=== PATIENT | male | born 1935 | race Caucasian/White ===

== ENCOUNTER 2016-05-27 04:30 | Inpatient (IN) | payer OTHER ==
[2016-05-20 13:04] LABS: URINE SOURCE CLEAN CATCH
[2016-05-20 13:10] LABS: MANUAL DIFF NEEDED? NO
[2016-05-20 13:27] LABS: INR 0.99; PROTIME 10.5 Seconds (9.2-11.7); PTT 25.1 Seconds (22.0-36.0)
[2016-05-20 13:29] LABS: BILIRUBIN URINE NEGATIVE (NEGATIVE); BLOOD URINE NEGATIVE (NEGATIVE); CLARITY CLEAR (CLEAR); COLOR YELLOW; GLUCOSE URINE NEGATIVE (NEGATIVE); LEUKOCYTES URINE NEGATIVE (NEGATIVE); NITRITE URINE NEGATIVE (NEGATIVE); PROTEIN URINE NEGATIVE (NEGATIVE); SP GRAVITY URINE 1.025; UROBILINOGEN URINE 0.2 EU/dL (0.2-1.0)
[2016-05-20 13:42] LABS: BASO% 0.1 % (0.0-0.8); EOS# 0.09 X1000 (0.0-0.7); EOS% 1.2 % (0.0-10.0); HEMATOCRIT 40.6 % (42.0-52.0); HEMOGLOBIN 13.4 g/dL (14.0-18.0); LYMPH# 1.56 X1000 (1.2-3.4); LYMPH% 20.4 % (20.5-51.1); MCH 31.5 PG (27-31); MCV 95.3 FL (81-99); MONO% 6.6 % (1.7-9.3); MPV 12.6 FL (7.4-10.4); NEUT% 71.7 % (42.2-75.2); PLT 171 X1000 (130-400); RBC 4.26 XMIL (4.7-6.1)
[2016-05-20 13:55] LABS: URINE EPITHELIAL CELLS <10 /HPF (<10); URINE RBC <10 /HPF (<10); URINE WBC <10 /HPF (<10)
[2016-05-20 13:58] LABS: AGAP 12; BUN 19 mg/dL (8-22); CALCIUM 8.7 mg/dL (8.8-10.2); CHLORIDE 98 mmol/L (98-107); COSMO 285; POTASSIUM 3.7 mmol/L (3.5-5.1); SODIUM 140 mmol/L (136-145); TCO2 30 mmol/L (25-35)
--- NOTE | 2016-05-20 15:46 | EKG Report ---
Test Performed on : 05/20/2016 12:29:28 PM Test Reason : PAT Blood Pressure : / mmHG Vent. Rate : 081 BPM Atrial Rate : 081 BPM P-R Int : 164 ms QRS Dur : 112 ms QT Int : 410 ms P-R-T Axes : 039 -37 004 degrees QTc Int : 476 ms Sinus rhythm. with frequent premature ventricular complexes. Possible Left atrial enlargement Left axis deviation Incomplete right bundle branch block Abnormal ECG When compared with ECG of 31-JUL-2015 12:02, No significant change was found Confirmed by Yohan Gonsales MD ([id number]) on 05/20/2016 9:52:11 PM
[2016-05-27] MEDS ORDERED: PEPCID ONE (08:13)
[2016-05-27] MEDS ORDERED: COLACE ONE (08:13)
[2016-05-27] MEDS ORDERED: LR 1,000 ML ONE ×2 (08:14→14:57)
[2016-05-27] MEDS ORDERED: REGLAN ONE (08:14)
[2016-05-27] MEDS ORDERED: LYRICA ONE (08:14)
[2016-05-27] MEDS ORDERED: KEFZOL 2 GM/D5W 50 ML ONE (08:14)
[2016-05-27] MEDS ORDERED: MARCAINE 0.25% PF/EPI 1:200,000 ONE (09:23)
[2016-05-27] MEDS ORDERED: DURAMORPH ONE (09:23)
[2016-05-27] MEDS ORDERED: SODIUM CHLORIDE 0.9% ONE (09:23)
[2016-05-27] MEDS ORDERED: NEOSPORIN G.U. IRRIGANT ONE (09:23)
[2016-05-27] MEDS ORDERED: TORADOL ONE (09:23)
[2016-05-27] MEDS ORDERED: EXPAREL 1.3% ONE (09:24)
[2016-05-27] MEDS ORDERED: NAROPIN 0.5% ONE (09:38)
[2016-05-27] MEDS ORDERED: VERSED ONE (09:44)
[2016-05-27] MEDS ORDERED: CYKLOKAPRON 1,000 MG/NS 100 ML ONE (10:07)
[2016-05-27] MEDS: BENICAR PO SCH ×2 (11:01→19:16)
[2016-05-27] MEDS ORDERED: MORPHINE ONE (12:18)
[2016-05-27] MEDS ORDERED: DIPRIVAN 1% ONE (12:19)
--- NOTE | 2016-05-27 12:26 | OPERATIVE NOTE ---
PROCEDURE DATE: 05/27/2016 PREOPERATIVE DIAGNOSIS: Right glenohumeral arthritis with chronic rotator cuff tear. 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 PROCEDURE PERFORMED: Right reverse shoulder arthroplasty with a DePuy Delta Xtend size 14 press- fit stem, a 42+9 humeral cup, a 42 eccentric glenosphere, and a standard metaglene. SURGEON: Rajiv Ny MD 1ST WEEKEND CAREGIVER: FÉLIX Rice 2ND WEEKEND CAREGIVER: PUMA Yan ANESTHESIA: General. IV FLUIDS: 1200 mL of lactated Ringer's. ESTIMATED BLOOD LOSS: 150 mL. COMPLICATIONS: None. INDICATIONS: The patient is an 81-year-old male with a chronic history of worsening pain and discomfort of his right shoulder. His x-rays revealed significant degenerative glenohumeral arthritis with superior migration of the humeral head, consistent with a chronic rotator cuff tear. Recommendation to proceed with right reverse total shoulder arthroplasty was offered. Risks and benefits of surgery were explained, including risks of anesthesia, , bleeding, infection, failure to relieve pain, postoperative stiffness, nerve injury, blood clots, and other imponderables. All questions were answered. The patient and family wished to proceed with surgery. DETAILS OF OPERATION: The patient was taken to the operating room and placed supine on the operating table. Once adequate anesthesia was obtained, the patient was placed in semi-Pascual beach-chair position. The right shoulder was subsequently prepped and draped in usual sterile fashion. A standard deltopectoral incision was made with a skin knife. Hemostasis was obtained using electrocautery. A standard deltopectoral incision was made. Hemostasis was obtained using electrocautery. The deltopectoral interval was then developed and the cephalic vein was retracted laterally with the deltoid. Retractors were then placed. At the inferior aspect of the subscapularis tendon, the patient has a large massive rotator cuff tear extending from anteriorly to posteriorly and in a portion of the subscapularis as well. The inferior aspect of the subscapularis tendon was elevated and retracted. The head was then dislocated anteriorly. A starting reamer was passed into the intramedullary canal and this was increased. Sequential reaming was then conducted up to size 14. An intramedullary guide was then placed and the humeral head was then resected in standard fashion. A protective disk was then placed. Attention was then turned to the glenoid, where circumferential dissection was performed with a deep knife. The patient did have an inferior osteophyte off the distal inferior aspect of the glenoid, which was removed with a rongeur and a small osteotome. A guide was placed in position. A guide pin was placed. Reaming was then conducted. An inferior osteophyte was noted on the glenoid. A rongeur along with a small osteotome was used to remove this. There appeared to be adequate resection of the osteophyte. A central hole was then dilated. The wound was copiously irrigated with antibiotic pulsatile lavage. The standard metaglene was then placed. Two locking screws were placed and 2 nonlocking screws. They had good purchase. The wound was copiously irrigated once again. A 42 eccentric glenosphere was then placed with the eccentricity placed inferiorly. Attention was then turned to the proximal humerus, where a guide was placed in position. The proximal humerus was then reamed. The intramedullary canal was then copiously irrigated with antibiotic pulsatile lavage. This was followed by a size 14 press-fit stem and had good purchase. Trial cups were then placed and a +9 had excellent stability and range of motion. The trial cup was removed. Copious irrigation was then performed once again with antibiotic pulsatile lavage. A 42+9 humeral cup was impacted on the stem. The shoulder was reduced, carried through range of motion, and had excellent range of motion and stability. Exparel was placed in the deep soft tissue as well as subcutaneous tissue. Copious irrigation was then performed once again with antibiotic pulsatile lavage. Suture of 2-0 Vicryl was used to repair the subcutaneous tissue, followed by running 2-0 Prolene. Benzoin and Steri-Strips were applied. Adaptic, sterile 4 x 4's, ABD pad, and tape were applied to the right shoulder, followed by a shoulder immobilizer. All counts were correct. The patient tolerated the procedure well and was transferred to the recovery room in stable condition. [facility]
[2016-05-27] MEDS ORDERED: MORPHINE IV PRN (12:59)
[2016-05-27] MEDS ORDERED: MILK OF MAGNESIA PO PRN (13:00)
[2016-05-27] MEDS ORDERED: ZOFRAN PO PRN (13:00)
[2016-05-27] MEDS: NS 1,000 ML IV SCH ×2 (13:08→23:27)
[2016-05-27] MEDS ORDERED: NS 1,000 ML ONE (13:10)
--- NOTE | 2016-05-27 13:24 | HISTORY AND PHYSICAL ---
CHIEF COMPLAINT: Right shoulder pain. HISTORY OF PRESENT ILLNESS: Mr. De La Rosa is an 81-year-old white male with a history of right shoulder pain he states for several years. Images show evidence of advanced osteoarthritis of the shoulder. He is being admitted today for a right total shoulder arthroplasty. PAST MEDICAL HISTORY: Hypertension, hyperlipidemia, colon cancer and osteoarthritis. PAST SURGICAL HISTORY: Colon resection. Right elbow surgery. Right inguinal hernia surgery. FAMILY HISTORY: Noncontributory. SOCIAL HISTORY: Single. Denies using tobacco, reports using alcohol occasionally. CURRENT HOME MEDICATIONS ARE: Tramadol 50 mg p.o. q.6 hours p.r.n., Pravachol 40 mg p.o. at bedtime, aspirin 81 mg p.o. at bedtime and Benicar 5 mg p.o. daily. ALLERGIES: Sulfa. PRIMARY CARE PROVIDER: Dr. Jeter. REVIEW OF SYSTEMS: HEENT: Patient reports having glasses. Denies any dentures or hearing aids or any ear, nose, or throat problems. Cardiac: Patient denies any cardiac problems in the past. Denies syncope. Denies any chest pain, currently. Pulmonary: Patient denies any chronic lung disease or any coughing or wheezing or difficulty breathing. Gastrointestinal: Patient reports having some gastroesophageal reflux. Denies any nausea, vomiting, or diarrhea or any current reflux. Genitourinary: Patient denies any genitourinary problems. Neurological: The patient reports bilateral fingertip tingling. Musculoskeletal: Patient reports right shoulder pain and lack of range of motion. PHYSICAL EXAMINATION: GENERAL: The patient is awake, sitting up in bed. He is articulate and able to answer questions appropriately. HEENT: Head is normocephalic, atraumatic. Pupils equal, round, reactive to light. Nares patent. Throat without exudate. CARDIAC: S1, S2 auscultated. No murmur, rub or gallop noted. LUNGS: Clear to auscultation bilaterally. GASTROINTESTINAL: Abdomen is soft, nontender, nondistended. Bowel sounds present in all quadrants. GENITOURINARY: Not examined. NEUROLOGICAL: Patient has good sensation to dull touch in all extremities. Cranial nerves 2-12 grossly intact. MUSCULOSKELETAL: Patient complains of right pain with deep palpation of the shoulder. The patient has pain with passive range of motion as well as palpation of the shoulder. IMPRESSION: Right shoulder osteoarthritis. PLAN OF CARE: Right reverse total shoulder arthroplasty. The risks, benefits, and alternatives of surgery were discussed with the patient including risk of anesthesia, bleeding, damage to blood vessels, nerves, tendons, ligaments, and other imponderables were discussed. The patient agrees to proceed with the surgery at this time. Dictated by FÉLIX Rice for Rajiv Ny MD
--- NOTE | 2016-05-27 13:44 | Diag Imaging Result Document ---
PROCEDURE NAME: SHOULDER 1 VIEW RIGHT - 05/27/2016 PORTABLE RIGHT SHOULDER: FINDINGS: There is a total shoulder arthroplasty. There appears to be appropriate alignment. There is severe degenerative change in the acromioclavicular joint. There is some apparent atelectasis in the mid lower right lung field. IMPRESSION: Postsurgical changes and degenerative arthritis. Atelectasis in the right base.
[2016-05-27] MEDS ORDERED: NEO-SYNEPHRINE ONE (14:56)
[2016-05-27] MEDS ORDERED: ZOFRAN ONE (14:56)
[2016-05-27] MEDS ORDERED: QUELICIN (DOSE) ONE (14:57)
[2016-05-27] MEDS ORDERED: PIGGYBACK SET 7393 ONE (14:57)
[2016-05-27] MEDS ORDERED: NS 250 ML ONE (14:57)
[2016-05-27] MEDS ORDERED: XYLOCAINE-MPF 2% ONE (14:57)
[2016-05-27] MEDS ORDERED: OFIRMEV 1000 MG/ISOTONIC SOLN 100 ML ONE (14:57)
[2016-05-27] MEDS ORDERED: ZEMURON ONE (14:57)
[2016-05-27] MEDS ORDERED: DECADRON ONE (14:57)
[2016-05-27] MEDS: TYLENOL PO SCH ×2 (16:33→23:27)
[2016-05-27] MEDS ORDERED: CYKLOKAPRON 1,000 MG in NS 100 ML IV ONE (16:35)
[2016-05-27] MEDS: KEFZOL 1 GM/D5W 50 ML IV SCH (17:08)
[2016-05-27] MEDS: ASPIRIN PO SCH (20:58)
[2016-05-27] MEDS: PERIDEX MT SCH (20:58)
[2016-05-27] MEDS: COLACE PO SCH (20:59)
[2016-05-27] MEDS: PRAVACHOL PO SCH (20:59)
[2016-05-28] MEDS: NS 1,000 ML IV SCH ×2 (01:48→15:12)
[2016-05-28] MEDS: KEFZOL 1 GM/D5W 50 ML IV SCH (01:48)
[2016-05-28] MEDS: TYLENOL PO SCH ×6 (05:38→23:55)
[2016-05-28 06:11] LABS: HEMOGLOBIN 10.8 g/dL (14.0-18.0)
[2016-05-28] MEDS: OXY IR PO PRN ×3 (06:38→14:47)
[2016-05-28 06:48] LABS: AGAP 15; BUN 19 mg/dL (8-22); CALCIUM 8.1 mg/dL (8.8-10.2); CHLORIDE 100 mmol/L (98-107); COSMO 284; POTASSIUM 3.9 mmol/L (3.5-5.1); SODIUM 140 mmol/L (136-145); TCO2 25 mmol/L (25-35)
--- NOTE | 2016-05-28 07:16 | PROGRESS NOTE ---
DATE: 05/28/2016 SUBJECTIVE: The patient is an 81-year-old male who is 1 day status post right reverse total shoulder arthroplasty. He is currently resting comfortably this morning. OBJECTIVE: On physical examination of the right upper extremity, his dressing is intact. He is neurovascularly intact throughout. He is able to flex and extend all of his fingers. He has good client account specialist strength. DIAGNOSTIC DATA: His hemoglobin is 10.8, hematocrit 33. IMPRESSION: Postoperative day number 1, status post right reverse total shoulder arthroplasty. PLAN: At this point, we will change his dressing, hep-lock his IV, and discontinue his Craft. We will begin mobilization with physical therapy. The patient uses a walking cane for home for ambulation. At this time, we will consult social media director for discharge planning for inpatient rehabilitation.
[2016-05-28] MEDS: COLACE PO SCH ×2 (09:45→20:44)
[2016-05-28] MEDS: PERIDEX MT SCH ×2 (09:46→20:45)
[2016-05-28] MEDS: BENICAR PO SCH ×2 (09:48→20:44)
[2016-05-28] MEDS: PEPCID PO SCH (09:50)
[2016-05-28] MEDS ORDERED: MIRALAX PO ONE (13:20)
[2016-05-28] MEDS ORDERED: MIRALAX PO PRN (13:20)
[2016-05-28] MEDS ORDERED: DULCOLAX PR PRN (18:50)
[2016-05-28] MEDS: ASPIRIN PO SCH (20:44)
[2016-05-28] MEDS: PRAVACHOL PO SCH (20:44)
[2016-05-28] MEDS ORDERED: DULCOLAX PR ONE (21:00)
[2016-05-28] MEDS ORDERED: HALL'S COUGH LOZENGE MT PRN (23:23)
[2016-05-29] MEDS: NS 1,000 ML IV SCH (04:26)
[2016-05-29] MEDS: TYLENOL PO SCH (05:51)
[2016-05-29 05:53] LABS: HEMATOCRIT 36.4 % (42.0-52.0); HEMOGLOBIN 11.9 g/dL (14.0-18.0)
--- NOTE | 2016-05-29 06:37 | PROGRESS NOTE ---
DATE: 05/29/2016 CLINICAL HISTORY: Patient is a pleasant 81-year-old male who is 2 days status post right reverse shoulder arthroplasty. The patient has no significant complaints this morning. PHYSICAL EXAM: RIGHT UPPER EXTREMITY.: The wound looks good. There are no signs or symptoms of infection. He is neurovascularly intact throughout. He is a able to flex and extend with his fingers, has good envelope folding machine adjuster strength. No x-rays were obtained today. LABORATORY: Hemoglobin is 11.9, hematocrit is 36.4. IMPRESSIONS: Postoperative day #2, status post right reverse total shoulder arthroplasty. PLAN: At this point, the patient will continued with therapy and patient rehabilitation tomorrow.
--- NOTE | 2016-05-29 07:13 | DISCHARGE SUMMARY ---
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 Status post right reverse shoulder arthroplasty. BRIEF HISTORY: Patient is a pleasant 81-year-old male with a chronic history of worsening pain and discomfort in his right shoulder. The pain has progressed to affect his activities of daily living. X-rays revealed significant degenerative glenohumeral arthritis with superior migration of humeral head consistent with chronic rotator cuff tear. Recommendation to proceed with right reverse shoulder arthroplasty was offered. Risks and benefits were discussed and all questions answered. Patient wished to proceed with surgery. HOSPITAL COURSE AND TREATMENT: Patient was admitted to the hospital and underwent right reverse shoulder arthroplasty. He had an uneventful postoperative course. By postop day #2 his wound looked good. There were no signs or symptoms of infection. Pain was well controlled with p.o. medications and he was tolerating a regular diet. His hemoglobin and hematocrit has also remained stable. By postop day #2, hemoglobin was 11.9, hematocrit is 36.4. It was felt the patient would benefit from inpatient rehabilitation and he was agreeable to this. DISCHARGE MEDICATIONS: OxyIR 5 mg, 1 p.o. q.3 hours p.r.n. pain. For the remaining medications, please see medication list. DISCHARGE INSTRUCTIONS: 1. Patient will be discharged for inpatient rehabilitation. 2. Consult physical therapy with gait training with nonweightbearing right upper extremity with passive range of motion exercises right shoulder. Maybe active range of motion with the elbow, wrist and fingers. 3. Discontinue the suture in 10 days. 4. Follow up in the office after discharge from rehab.
[2016-05-29] MEDS ORDERED: TYLENOL PO PRN (07:16)
[2016-05-29] MEDS: PEPCID PO SCH (10:23)
[2016-05-29] MEDS: PERIDEX MT SCH ×2 (10:23→20:44)
[2016-05-29] MEDS: COLACE PO SCH ×2 (10:23→20:43)
[2016-05-29] MEDS: MIRALAX PO SCH (10:24)
--- NOTE | 2016-05-29 12:08 | Diag Imaging Result Document ---
PROCEDURE NAME: CHEST-PORTABLE - 05/29/2016 AP PORTABLE CHEST: TIME: 1130 hours. FINDINGS: The left ventricle is enlarged. The lungs are clear and the pulmonary vascularity are within normal limits. There has been a right shoulder arthroplasty. Otherwise, there has been no significant change since 07/31/2015. IMPRESSION: 1. Borderline cardiomegaly. 2. Otherwise, no evidence of acute disease.
[2016-05-29] MEDS: TUMS PO PRN ×2 (17:59→18:00)
[2016-05-29] MEDS: BENICAR PO SCH (20:43)
[2016-05-29] MEDS: ASPIRIN PO SCH (20:44)
[2016-05-29] MEDS: PRAVACHOL PO SCH (20:44)
[2016-05-30 06:23] LABS: HEMATOCRIT 34.5 % (42.0-52.0); HEMOGLOBIN 11.2 g/dL (14.0-18.0)
--- NOTE | 2016-05-30 06:55 | PROGRESS NOTE ---
DATE: 05/30/2016 SUBJECTIVE: The patient is 3 days status post right reverse shoulder arthroplasty. The patient has no complaints this morning. OBJECTIVE: On physical exam, his right upper extremity wound looks good. There are no signs of infection and has flexion of his fingers. Neurovascularly intact throughout. Hemoglobin is 11.2, hematocrit is 34.5. IMPRESSION: Postop day #3, status post right reverse shoulder arthroplasty. PLAN: At this point, the patient will be discharged for inpatient rehabilitation. He will follow up in the office after discharge from rehab.
[2016-05-30 07:34] VITALS: BP 126/60
[2016-05-30] MEDS: PEPCID PO SCH (09:27)
[2016-05-30] MEDS: PERIDEX MT SCH (09:27)
[2016-05-30] MEDS: TUMS PO PRN (09:31)
[2016-05-30] MEDS: MIRALAX PO SCH (09:40)
[2016-05-30] MEDS: COLACE PO SCH (09:40)
== END 2016-05-30 11:09 | DRG 483 ==
LOC: SURHOLD 04:30 → 4N 09:39 → DIRADM 13:59 → 4N 14:03
PROVIDERS: ADMIT Orthopaedic Surgery Adult Reconstructive Orthopaedic Surgery; ATTEND Orthopaedic Surgery Adult Reconstructive Orthopaedic Surgery
PROC: 0RRJ00Z Replacement of Right Shoulder Joint with Reverse Ball and Socket Synthetic Substitute, Open Approach (ICD-10-PCS; principal; 2016-05-27 10:08)
DX: M19.011 Primary osteoarthritis, right shoulder (principal); I10 Essential (primary) hypertension; M75.101 Unspecified rotator cuff tear or rupture of right shoulder, not specified as traumatic; E78.5 Hyperlipidemia, unspecified; Z85.038 Personal history of other malignant neoplasm of large intestine; Z90.49 Acquired absence of other specified parts of digestive tract; Z79.82 Long term (current) use of aspirin; Z79.899 Other long term (current) drug therapy
CPT/HCPCS: 71010; 80048; 81001; 85014; 85018; 85025; 85610; 85730; 86850; 86900; 86901; 88305; 88311; 93005; 93010; 94761; 94799; C9290; J0131; J0330; J0690; J1100; J1885; J2250; J2270; J2274; J2370; J2405; J2795; J7030; J7050; J7120; 97110-GP; 97116-GP; 97530-GP; S0020